=== PATIENT | male | born 1970 | race Caucasian/White ===

== ENCOUNTER 2019-09-05 19:51 | Emergency (ER) | payer BC, SELFPAY ==
[2019-09-05 20:01] VITALS: BP 162/107; PULSE 69; RESP 16; TEMP 36.7; O2SAT 98; BMI 28.2
[2019-09-05 20:19] VITALS: BP 155/102; PULSE 88; RESP 16; TEMP 36.7; O2SAT 96
== END 2019-09-05 20:23 | disposition left against medical advice (07) ==
PROVIDERS: Emergency Provider Emergency Medicine; PCP Internal Medicine Adolescent Medicine
DX: Z53.21 Procedure and treatment not carried out due to patient leaving prior to being seen by health care provider (principal); T17.228A Food in pharynx causing other injury, initial encounter
CPT/HCPCS: 99211

== ENCOUNTER → 2019-11-01 15:45 | Outpatient (POV) | payer BC, SELFPAY | PROVIDERS: Visit Provider Nurse Practitioner Family | DX: Z00.00 Encounter for general adult medical examination without abnormal findings (principal) ==

== ENCOUNTER → 2019-11-27 08:32 | Outpatient (CLI) | payer BC, SELFPAY ==
[2019-11-27 10:24] LABS: Coronavirus 19 IgG Antibody Negative (Negative); Coronavirus 19 IgM Antibody Negative (Negative)
== END ==
PROVIDERS: Visit Provider Internal Medicine Gastroenterology
DX: Z01.89 Encounter for other specified special examinations (principal); Z13.810 Encounter for screening for upper gastrointestinal disorder; R13.10 Dysphagia, unspecified
CPT/HCPCS: 36415; 86328

== ENCOUNTER 2019-11-29 08:25 | Day surgery (SDC) | payer BC, SELFPAY ==
[2019-11-29 08:45] VITALS: BP 148/85; PULSE 69; RESP 18; TEMP 36.5; O2SAT 99; BMI 28.8
--- NOTE | 2019-11-29 10:46 | HMH.ANESCL ---
[facility] Anesthesia Checklist - Patient Identification Patient Identification: Arm Band - Structural Data Admitted From: Home Planned Operative Procedure/s: egd Consent for Planned Operative Procedure(s) Verified: Yes Verified Documents: Surgical Consent, History and Physical - NPO Status Verified Time NPO: 00:00 - Additional verifications Anesthesia Reactions: No - Airway Assessment C-Spine Mobility Assessed: Yes (mp2) TMJ Mobility Assessed: Yes Dentition: Good Dentition - Neurological Assessment Level of Consciousness: Awake, Alert - Anesthesia Plan Anesthesia Risk discussed: Yes Anesthesia Plan: Verified ASA Class: II Anesthesia Type: MAC [facility] History I have reviewed the patient's past medical history: Yes Medical History: Reports:: Hypertension Denies:: Cancer, Diabetes Mellitus Type 1, Diabetes Mellitus Type 2, Internal Pacemaker, MRSA, Seizures *Have you ever received a pneumonia vaccine?: No *Have you received a flu vaccine this season?: No Anesthesia experience/problems:: nac Other Surgeries: Yes: Hernia Repair. No: Pacemaker Amputation: No Fractures: No - *Social History Last grade of school completed: Advanced degree Alcohol Intake: never Substance Use Type: denies use *Occupational Status:: employed *Travel in the last 8 weeks: None Family Hx:: Unable to obtain
[2019-11-29 10:58] VITALS: O2SAT 98
--- NOTE | 2019-11-29 11:15 | HMH.PROC ---
[facility] Procedure Note Procedure Note:: Upper Endoscopy Procedure Report: Esophagogastroduodenoscopy with cold biopsies and TTS balloon dilation Endoscopost: Frank Parish II, MD Referring Physician: Femi Cloud M.D. Date of Procedure: November 29, 2019 Equipment: Olympus GIF 180 standard upper endoscope Sedation: MAC sedation Indications: Mr. Rico is a 48-year-old gentleman with dysphagia. The patient did go to the emergency department in August because of a piece of steak that lodged in his esophagus. He cannot regurgitate this for at least 30 to 60 minutes. He was finally able to get this down without requiring emergent upper endoscopy. This did happen one other time a few years ago. He reports no heartburn or reflux. He has had no further episodes of dysphagia. Procedure: Prior to the procedure, a history and physical exam was performed, and patient's medications and allergies were reviewed. The risks, benefits and alternatives of the sedation and procedure were discussed with the patient. All questions were answered and informed consent was obtained. The patient was brought to the procedure room. Patient identification and proposed procedure were verified by the physician and the nurse. The patient was placed in a left lateral decubitus position and the scope was passed under direct vision. Throughout the procedure, the patient's blood pressure, pulse, and oxygen saturations were monitored continuously. The upper GI endoscopy was accomplished without difficulty. The patient tolerated the procedure well. Findings: The scope was passed directly into the upper esophagus and advanced to the third portion of the duodenum. The post bulbar duodenum and duodenal bulb were normal with normal mucosa and conniventes. The scope was withdrawn through a normal duodenal bulb and pylorus into the stomach. There was mild linear reactive gastropathy of the antrum of the stomach. The remainder of the antrum, body and fundus of the stomach were grossly normal. Upon retroflexion there was a very small 1 to 2 cm hiatal hernia. 2 biopsies were taken in the antrum and along the lesser curvature for histology to rule out gastritis and/or H pylori. The scope was then withdrawn into the esophagus. There was nonerosive GERD and biopsies were taken at the GE junction. There was no evidence of reflux esophagitis or Madrid's. There was also a Schatzki's ring just above the GE junction. This was dilated from 18 to 20 mm with a TTS hydrostatic balloon with shattering of the Schatzki's ring. The remainder of the esophageal mucosa was normal. Impression: 1. Schatzki's ring dilated to 20 mm 2. Nonerosive GERD with very small sliding hiatal hernia 3. Very mild linear reactive gastropathy Plan: I will place the patient on omeprazole for 3 months for healing. I will follow-up the biopsies and discuss the findings with the patient and family. The patient should have clinical improvement.
[2019-11-29 11:17] VITALS: BP 123/77; PULSE 83; RESP 12; TEMP 36.2; O2SAT 96
[2019-11-29 11:27] VITALS: BP 120/77; PULSE 90; RESP 16; O2SAT 96
[2019-11-29 11:37] VITALS: BP 106/66; PULSE 81; RESP 16; O2SAT 95
[2019-11-29 11:47] VITALS: BP 111/64; PULSE 64; RESP 16; TEMP 36.2; O2SAT 96
== END 2019-11-29 12:01 | disposition home or self-care (01) ==
LOC: OUTP 08:27
PROVIDERS: PCP Internal Medicine Adolescent Medicine; Visit Provider Internal Medicine Gastroenterology
PROC: 0DJ08ZZ Inspection of Upper Intestinal Tract, Via Natural or Artificial Opening Endoscopic (ICD-10-PCS; CPT 43235; principal; 2019-11-29 09:30)
DX: K22.2 Esophageal obstruction (principal); K44.9 Diaphragmatic hernia without obstruction or gangrene; K21.9 Gastro-esophageal reflux disease without esophagitis; K31.9 Disease of stomach and duodenum, unspecified; I10 Essential (primary) hypertension; Z80.9 Family history of malignant neoplasm, unspecified; Z83.3 Family history of diabetes mellitus; Z82.49 Family history of ischemic heart disease and other diseases of the circulatory system; Z79.899 Other long term (current) drug therapy
CPT/HCPCS: 43239; 43249; C1726

== ENCOUNTER → 2021-10-09 13:22 | Outpatient (CLI) | payer BC, SELFPAY ==
--- NOTE | 2021-10-09 13:25 | CA_ITS ---
FINAL REPORT TECHNIQUE: Color Doppler, duplex Doppler and compression sonography of the right lower extremity venous system was performed. CLINICAL HISTORY: .sciatic pain with pain in rt calf FINDINGS: There is no evidence of deep venous thrombosis from the level of the groin to the calf. The veins are patent and compressible. IMPRESSION: No evidence of deep venous thrombosis right lower extremity. Reviewed, Interpreted and Dictated by Cecilio Kan III, MD Transcribed by Samantha Rabago Authenticated and . [facility]
== END ==
PROVIDERS: PCP Internal Medicine Adolescent Medicine; Visit Provider Nurse Practitioner Family
DX: M79.604 Pain in right leg (principal)
CPT/HCPCS: 93971

== ENCOUNTER → 2022-04-19 07:18 | Outpatient (CLI) | payer OTHER, SELFPAY ==
[2022-04-19 09:01] LABS: Alanine Aminotransferase 36 U/L (12-78); Albumin Level 4.6 g/dl (3.5-5.0); Albumin/Globulin Ratio 1.9 (1.1-1.8); Alkaline Phosphatase 50 U/L (38-126); Anion Gap 8.6 mEq/L (5-15); Aspartate Amino Transferase 28 U/L (17-59); Bilirubin,Total 0.5 mg/dl (0.2-1.3); Blood Urea Nitrogen 22 mg/dl (9-20); Calcium 8.8 mg/dl (8.4-10.2); Carbon Dioxide 30 mmol/L (22.0-30.0); Chloride 105 mmol/L (98-107); Chol/HDL Ratio 4.3 (1-3.5); Cholesterol 189 mg/dl (140-200); Estimated Glomerular Filt Rate 78 ml/min (>60); GFR (African American) 95 ML/MIN (>60); Globulin 2.4 g/dL (1.3-3.2); Glucose 98 mg/dl (74-100); HDL Cholesterol 44 mg/dl (40-60); Potassium 4.6 mmoL/L (3.5-5.1); Sodium 139 mmol/L (136-145); Triglycerides 103 mg/dl (30-150); VLDL Cholesterol 21 mg/dL (0-40)
[2022-04-19 09:12] LABS: Direct LDL Cholesterol 123.26 mg/dL (100-129)
[2022-04-19 09:31] LABS: Prostate Specific Ag Screen 0.5 ng/ml (0.0-4.0)
== END ==
PROVIDERS: PCP Internal Medicine Adolescent Medicine; Visit Provider Internal Medicine Adolescent Medicine
DX: Z00.00 Encounter for general adult medical examination without abnormal findings (principal)
CPT/HCPCS: 36415; 80053; 80061; G0103

== ENCOUNTER 2025-01-15 12:16 | Outpatient (CLI) | payer OTHER, SELFPAY | END 2025-01-15 23:59 | disposition home or self-care (01) | LOC: LAB.DROPOF 12:19 | PROVIDERS: PCP Internal Medicine Adolescent Medicine; Visit Provider Nurse Practitioner Family | DX: R30.0 Dysuria (principal) | CPT/HCPCS: 87086 ==

== ENCOUNTER 2025-01-20 13:17 | Outpatient (CLI) | payer BC, SELFPAY ==
--- NOTE | 2025-01-20 13:19 | CT_ITS ---
FINAL REPORT TECHNIQUE: CT examination of the abdomen and pelvis was performed pre and post intravenous contrast administration. This study was performed with techniques to keep radiation doses as low as reasonably achievable (ALARA). Individualized dose reduction techniques using automated exposure control or adjustment of mA and/or kV according to the patient's size were employed. CLINICAL HISTORY: GROSS HEMATURIA COMPARISON: None FINDINGS: CT ABDOMEN PELVIS WITH AND WITHOUT CONTRAST: Precontrast: Scarring is present in the left lung base. No calcified renal stones are seen. Postcontrast: There is mild fatty infiltration of the liver. The gallbladder is present. The spleen and pancreas are unremarkable in appearance. There is an exophytic well-circumscribed cystic structure, 1.5 x 1.8 cm in size, posterior to the left kidney. This structure measures 28 Hounsfield units precontrast enhancement and 31 Hounsfield units postcontrast, consistent with a complex benign cyst. There is a small left adrenal low-attenuation focus measuring 1 cm in size, that measures 0 Hounsfield units precontrast, consistent with a small adenoma. The right adrenal gland is unremarkable. The appendix is normal. There is no pelvic free fluid. The bladder is unremarkable. There are no bladder wall thickening or stones identified. IMPRESSION: Exophytic well-circumscribed cystic structure posterior to the left kidney, that is most consistent in appearance with a benign complex cyst. Small left adrenal low-attenuation focus consistent with a small adenoma. No renal stones or hydronephrosis are identified. Reviewed, Interpreted and Dictated by Soto Gan MD Transcribed by Marti Foster Authenticated and [facility]
[2025-01-20 13:44] LABS: Blood Urea Nitrogen 12 mg/dl (9-20); Creatinine,Serum 1.10 mg/dl (0.66-1.25); Estimated Glomerular Filt Rate 69 ml/min (>60); GFR (African American) 84 ML/MIN (>60)
[2025-01-20] MEDS: SODIUM CHLORIDE 0.9% 10ML SYR (RAD ONLY) 10 ML IV (14:11)
[2025-01-20] MEDS: IOPAMIDOL-370 (76%);100ML BOTTLE 75 ML IV (14:11)
== END 2025-01-20 23:59 | disposition home or self-care (01) ==
LOC: RAD 13:18
PROVIDERS: PCP Internal Medicine Adolescent Medicine; Visit Provider Nurse Practitioner Family
DX: R93.422 Abnormal radiologic findings on diagnostic imaging of left kidney (principal); R93.5 Abnormal findings on diagnostic imaging of other abdominal regions, including retroperitoneum
CPT/HCPCS: 36415; 74178; 82565; 84520; Q9967